=== PATIENT | female | born 2000 | race Caucasian/White ===

== ENCOUNTER 2023-03-30 17:29 | Emergency (ER) | payer BC, SELFPAY ==
--- NOTE | ~2023-03-30 | XR_ITS ---
Left Hand Technique: PA, oblique, and lateral views were obtained. Clinical History: Injury Findings: No acute fracture or dislocation is seen. Osseous alignment is anatomic. Joint spaces are p reserved. Soft tissues are unremarkable. Impression: Unremarkable left hand. Reviewed, dictated and finalized at location M. Impression: Unremarkable left hand.
[2023-03-30 17:35] VITALS: BP 106/56; PULSE 71; RESP 14; TEMP 36.6; O2SAT 99
[2023-03-30 17:50] VITALS: BP 106/56; PULSE 71; RESP 14; TEMP 36.6; O2SAT 99
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
== END 2023-03-30 18:28 | disposition home or self-care (01) ==
PROVIDERS: Emergency Provider Nurse Practitioner; PCP Family Medicine
DX: S63.502A Unspecified sprain of left wrist, initial encounter (principal); S60.222A Contusion of left hand, initial encounter; V18.4XXA Pedal cycle driver injured in noncollision transport accident in traffic accident, initial encounter; F41.9 Anxiety disorder, unspecified
CPT/HCPCS: 73130; 99213; G0463